=== PATIENT | female | born 1945 | race Caucasian/White ===

== ENCOUNTER 2019-06-04 09:33 | Inpatient (IN) ==
--- NOTE | 2019-06-04 09:56 | PROVIDER DOCUMENTATION ---
HPI-General Adult - General Chief Complaint: UTI Symptoms Stated Complaint: FEMALE Time Seen by Provider: 06/04/19 09:51 Source: patient Allergies/Adverse Reactions: Patient Allergies Allergy/AdvReac Type Severity Reaction Status Date / Time aspirin Allergy Unknown Verified 06/04/19 09:59 celecoxib Allergy Unknown Verified 06/04/19 09:59 chlorhexidine Allergy RASH Verified 06/04/19 09:59 ciprofloxacin [From Cipro] Allergy Unknown Verified 06/04/19 09:59 gabapentin Allergy Unknown Verified 06/04/19 09:59 Iodinated Contrast Media Allergy VOMITING Verified 06/04/19 09:59 niacin Allergy HIVES Verified 06/04/19 09:59 [From Niaspan Extended-Release] pregabalin Allergy ITCHING Verified 06/04/19 09:59 propoxyphene Allergy ITCHING Verified 06/04/19 09:59 [From Margesic (propoxyphene)] rofecoxib Allergy Unknown Verified 06/04/19 09:59 vancomycin Allergy ITCHING Verified 06/04/19 09:59 cogesic Allergy RASH Uncoded 06/04/19 09:59 Home Medications: Home Medication List Medication Instructions Recorded Confirmed Last Taken Type Calcitriol 1 cap PO DIRECTED 06/04/19 06/04/19 Unknown History Carvedilol 1 tab PO BID 06/04/19 06/04/19 Unknown History Cholecalciferol (Vit D3) [Vitamin 1 tab PO DAILY 06/04/19 06/04/19 Unknown History D3] Cyanocobalamin (Vitamin B-12) 1 tab PO DAILY 06/04/19 06/04/19 Unknown History [Vitamin B-12] Cyclobenzaprine HCl 1 tab PO QHS 06/04/19 06/04/19 Unknown History Escitalopram Oxalate [Lexapro] 1 tab PO DAILY 06/04/19 06/04/19 Unknown History Ferrous Sulfate 1 tab PO DAILY 06/04/19 06/04/19 Unknown History Hydrocodone/Acetaminophen 1 tab PO Q4-6H PRN PRN 06/04/19 06/04/19 Unknown History [Hydrocodone-Acetamin 7.5-325] Hydroxyzine HCl 1 - 2 tab PO TID PRN 06/04/19 06/04/19 Unknown History Insulin Glargine,Hum.rec.anlog 10 units SUBQ DAILY 06/04/19 06/04/19 Unknown History [Lantus Solostar] Insulin Lispro [Humalog Kwikpen 25 units SUBQ DAILY 06/04/19 06/04/19 Unknown History U-100] L.acidoph,Paracasei, B.lactis 1 cap PO DAILY 06/04/19 06/04/19 Unknown History [Probiotic] Lidocaine 5% Patch [Lidoderm] 1 patch TD DAILY 06/04/19 06/04/19 Unknown History Polyethylene Glycol 3350 [Miralax] 1 packet PO QHS PRN 06/04/19 06/04/19 Unknown History Rosuvastatin Calcium 10 mg PO QHS 06/04/19 06/04/19 Unknown History Sodium Bicarbonate 325 mg PO BID 06/04/19 06/04/19 Unknown History Sulfamethoxazole/Trimethoprim 1 tab PO DAILY 06/04/19 06/04/19 Unknown History [Bactrim 400-80 mg Tablet] Ubidecarenone [Coenzyme Q-10] 1 cap PO DAILY 06/04/19 06/04/19 Unknown History - History of Present Illness -Gen Adult Nature of Presenting Problems: [place] was [place], came to [place] yesterday to stay with her daughter, patient had history of chronic UTI, still had Picc line in place. patient had back surgery, history of chronic urinary incontinence. patient reported her blood pressure was low this AM, went to and was asked to come to the ER. Location of Pain/Injury: reports: other (urinary tract) Pain Radiation: reports: no radiation Quality of Pain: reports: burning, sharp, stabbing Severity: reports: moderate Onset/Duration: reports: gradual Timing: reports: still present Context/Activities at Onset: reports: none Associated Symptoms: reports: anxiety, genitourinary problems. denies: chest pain, cough, fever/chills, shortness of breath Similar Symptoms Previously?: Yes Recently seen or treated by another doctor?: Yes Review of Systems - Adult - REVIEW OF SYSTEMS - ADULT Constitutional: reports: jessica. denies: fever Eyes: reports: no symptoms reported Ears, Nose, Mouth & Throat: reports: no symptoms reported Cardiovascular: reports: no symptoms reported Respiratory: reports: no symptoms reported Gastrointestinal: reports: no symptoms reported Genitourinary: reports: dysuria, frequent UTI's, incontinence Musculoskeletal: reports: no symptoms reported Integumentary: reports: no symptoms reported Neurological: reports: no symptoms reported Psychiatric: reports: no symptoms reported Endocrine: reports: no symptoms reported Hematologic/Lymphatic: reports: no symptoms reported Past History - Adult - PAST MEDICAL HISTORY-ADULT Review of Records: reports: Nursing Assessment Review Physical Exam-General - PHYSICAL EXAM-ADULT Initial Vital Signs Reviewed: Yes - CONSTITUTIONAL General Appearance: alert, no apparent distress - EYES Eyes: PERRL/EOMI, pink conjunctivae - HEAD, EARS, NOSE, MOUTH & THROAT HENMT: normocephalic/atraumatic, normal ENT inspection - NECK Neck: non-tender, supple - RESPIRATORY Respiratory: chest non-tender, lungs clear - CARDIOVASCULAR Cardiovascular: normal peripheral pulses, regular rate, rhythm, no edema - GASTROINTESTINAL (ABDOMEN) Abdominal Exam: normal bowel sounds, non tender - LYMPHATIC Lymphatic: no adenopathy - MUSCULOSKELETAL Back Exam: normal inspection, no CVA tenderness, no vertebral tenderness Extremity: non-tender, no pedal edema, no calf tenderness - SKIN Integumentary: normal color, normal turgor - NEUROLOGIC Neurologic: grossly normal, no motor/sensory deficits - PSYCHIATRIC Psych/Mental Status: normal mood/affect Progress - PLAN OF CARE/RESULTS Progress/Plan/Lab Results: Vital Signs - 8 hr 06/04/19 09:40 Temperature 97.9 F Pulse Rate 58 L Respiratory Rate 16 Blood Pressure 141/64 O2 Sat by Pulse Oximetry 100 Result Diagrams: 06/04/19 10:20 06/04/19 10:20 - CONSULTS/PCP/HOSPITALIST Notification #1 *Consult/PCP/Hospitalist*: CARINA Cullen Time Discussed: 14:42 Consult Disposition: Will see in ED, Admit Departure - Departure Date of Disposition Decision: 06/04/19 Time of Disposition Decision: 14:41 DIAGNOSIS: Hypoglycemia UTI (urinary tract infection) Qualifiers: Urinary tract infection type: site unspecified Hematuria presence: without hematuria Qualified Code(s): N39.0 - Urinary tract infection, site not specified Disposition: ADMITTED INPATIENT 09 Certified Medical Emergency: Emergent Condition: Good Referrals and Follow-Ups: None,PCP [Primary Care Provider] - - Critical Care Note This patient required my direct & personal management of CC.: No Attestation - Physician/ CHETAN Attestation Patient care was provided by Advanced Practice Provider:: No The physician spent face to face time with patient:: Yes Advanced Practice Provider documentation review:: Supervising physician onsite and consulted in the evaluation and care of this patient. The physician did have a face to face encounter with the patient.
[2019-06-04] MEDS ORDERED: NS 1,000 ML IV ONE (10:29)
[2019-06-04] MEDS ORDERED: D50W SYRINGE IV ONE (10:29)
[2019-06-04] MEDS ORDERED: D5 NS 1,000 ML IV ONE (10:43)
[2019-06-04 10:46] LABS: BASO# 0.06 X1000 (0.0-0.2); BASO% 0.5 % (0.0-0.8); EOS# 1.28 X1000 (0.0-0.7); EOS% 9.6 % (0.0-10.0); HEMATOCRIT 28.7 % (37.0-47.0); HEMOGLOBIN 9.2 g/dL (12.0-16.0); IMM GRAN# 0.04 X1000 (0.0-0.04); IMM GRAN% 0.3 % (0.0-0.5); LYMPH# 2.81 X1000 (1.2-3.4); LYMPH% 21.2 % (20.5-51.1); MCH 30.3 PG (27-31); MCHC 32.1 g/dL (33-37); MCV 94.4 FL (81-99); MONO# 1.16 X1000 (0.11-0.59); MONO% 8.7 % (1.7-9.3); MPV 8.9 FL (7.4-10.4); NEUT# 7.93 X1000 (1.4-6.5); NEUT% 59.7 % (42.2-75.2); PLT 392 X1000 (130-400); RBC 3.04 XMIL (4.2-5.4); WBC 13.28 X1000 (4.8-10.8)
[2019-06-04 11:17] LABS: ALB/GLOB RATIO 1.1; ALBUMIN 3.5 g/dL (3.5-5.0); CALCIUM 8.8 mg/dL (8.8-10.2); CREATININE 2.2 mg/dL (0.5-0.9); POTASSIUM 3.3 mmol/L (3.5-5.1); TOTAL BILIRUBIN 0.17 mg/dL (0.20-1.00); TOTAL PROTEIN 6.8 g/dL (6.3-8.3)
[2019-06-04] MEDS ORDERED: INVANZ 1 GM/NS 1 GM/50 ML IVPB IV ONE (14:12)
[2019-06-04 14:15] LABS: URINE SOURCE CLEAN CATCH
[2019-06-04 14:29] LABS: BILIRUBIN URINE NEGATIVE (NEGATIVE); BLOOD URINE MODERATE (NEGATIVE); COLOR ORANGE; GLUCOSE URINE 300 mg/dL (NEGATIVE); KETONE URINE NEGATIVE (NEGATIVE); LEUKOCYTES URINE LARGE (NEGATIVE); NITRITE URINE NEGATIVE (NEGATIVE); PROTEIN URINE 100 mg/dL (NEGATIVE); SP GRAVITY URINE 1.007; TURBIDITY URINE TURBID (CLEAR); UROBILINOGEN URINE NORMAL (NORMAL)
[2019-06-04 14:31] LABS: UR EPITHELIAL CELLS <10 /HPF (<10); URINE BACTERIA NEGATIVE /HPF; URINE WBC TNTC /HPF (<10)
[2019-06-04 15:00] LABS: URINE CASTS NONE SEEN; URINE CRYSTALS NONE SEEN; URINE YEAST PRESENT
[2019-06-04] MEDS ORDERED: ZOFRAN IV PRN (16:50)
[2019-06-04] MEDS ORDERED: ATARAX PO PRN (16:53)
[2019-06-04] MEDS ORDERED: MIRALAX PO PRN (16:53)
--- NOTE | 2019-06-04 18:02 | HISTORY AND PHYSICAL ---
ADDENDUM: Patient seen and examined by me [id number]. All the laboratory, vital signs were reviewed. The patient presented to the emergency department due to some lower abdominal pain. She has a PICC line. [place]. She has chronic UTIs and urinary retention I believe after having multiple surgeries on her back. Because of the surgery, also she has right lower extremity numbness and she has been using a walker and a wheelchair as well, we check on this patient and she has been having urinary retention. We will go ahead and culture her blood and also her urine to see if we can pull out her PICC line. She does not know what treatment she was getting, but she finished with that. We also noted that this patient's white blood cell count was elevated at 13.2. Her potassium level was a little bit low at 3.3 and the glucose level was 35, but I do not think she was having symptoms. The urine showed some white blood cell counts, but no nitrates, we are going to culture this anyway, she does not seems to be toxic, she does have a PICC line like I mentioned before, and she is coming from [place] and she is here with her daughters. Her plan is to stay here in [place], so probably we need to set up an appointment with Urology Department. I do believe this patient will need probably a suprapubic catheter or she will need to learn how to do auto catheterization. She will be hospitalized, and in 2 days hopefully I will discharge this patient home. I agree with the rest of the nurse practitioner's assessment and plan. cc: Liu Solo MD
--- NOTE | 2019-06-04 20:54 | HISTORY AND PHYSICAL ---
CHIEF COMPLAINT: "I think I have another UTI." HISTORY OF PRESENT ILLNESS: This is a 73-year-old female who underwent back surgery x3 in a 6- week period and subsequently has developed urinary retention with overflow incontinence, and incontinence of stool reportedly after the third surgery. She reports frequent UTI since the surgeries. She reports having more than one urinary tract infection since March, with the last requiring a PICC line and IV antibiotics. Although she cannot remember when the PICC line was placed and she is unaware of what antibiotic she took or how long she took it. She did report having 1 IV antibiotic daily. She reports being evaluated by a urologist in [place] for her incontinence. She is unable to give me any specifics about recommended treatment. She did state that she remembered wearing the catheter all the time, and catheterizing herself were mentioned in possible treatments. It appears she was lost to followup after this. Ms. López states that she went to the walk-in clinic because of suprapubic pain and pressure, urethral burning and stinging, and urinary retention. She denies any fever or chills, or any shortness of breath or cough Ms Collado moved to [place] 2 days ago from [place] to be with her daughter. PAST MEDICAL HISTORY: 1. Diabetes mellitus. 2. Hypertension. 3. Hyperlipidemia. 4. Chronic kidney disease stage 3. 5. COPD. 6. Peptic ulcer disease. PAST SURGICAL HISTORY: 1. Bariatric surgery, [id number]. 2. Multiple back surgeries. 3. Bilateral lens replacement. 4. Carpal tunnel surgery. SOCIAL HISTORY: She denies any alcohol, tobacco or illicit drug use. She has recently moved to [place] to live with her daughter for a while. ALLERGIES: Aspirin, Cipro. gabapentin and propoxyphene, with unknown reactions. Chlorhexidine causes a rash. Iodine contrast causes vomiting. Niaspan causes hives; vancomycin, itching. HOME MEDICATIONS: A list will be obtained by the nursing staff, and once verified we will review and restart as appropriate. REVIEW OF SYSTEMS: Discussed with the patient, with pertinent positives stated in the HPI. She denied any syncope or dizziness, any chest pain, palpitations, cough, any shortness of breath, PND, orthopnea, any nausea, vomiting, diarrhea, constipation, black or bloody vomitus or stools, hematuria, dysuria, frequency or urgency. PHYSICAL EXAMINATION: GENERAL: This is a 73-year-old female who is sitting up on the stretcher in the emergency room in no distress. VITAL SIGNS: Blood pressure is 134/60 with a heart rate of 63, respirations are 18, temperature is 98.2 degrees, with O2 saturations 97% to 100% EYES: Pupils are equal, round and reactive to light. EOMs are intact. Sclerae anicteric. HEENT: Head is normocephalic, atraumatic. Mucous membranes are moist. NECK: Supple, with trachea midline. CARDIOVASCULAR: Regular rate and rhythm. S1, S2 appreciated. No lower extremity edema. She reported calves are nontender bilaterally, with peripheral pulses palpable x4 extremities. PULMONARY: Breath sounds are clear. No increased work of breathing noted. Chest rises and falls symmetric with respiration. Chest wall is nontender to palpation. GASTROINTESTINAL: Abdomen is soft, nontender, nondistended, with bowel sounds in all 4 quadrants. NEUROLOGIC: She is alert and oriented x3. SKIN: Warm and dry. LABORATORY DATA: WBC is 13.2 with hemoglobin 9.2, hematocrit 28.7, platelets of 392,000. Sodium is 137, potassium 3.3, BUN 29, creatinine 2.2 with a glucose of 35. Urinalysis reveals large leukocytes with pro-[id number]-vb-count white blood cells and 10-20 red blood cells. Blood cultures and urine culture are pending. ASSESSMENT AND PLAN: 1. Urinary retention with overflow incontinence. We will place a Vilchis catheter. I have spoken with Dr. Mikey German, who will see the patient next week after discharge from the hospital. The patient will be discharged with a Vilchis catheter and a leg bag. 2. Multiple back surgeries, with right lower extremity numbness and weakness. The patient uses a walker and a wheelchair, which we will continue. 3. Reported chronic urinary tract infection, with recent intravenous antibiotics via peripherally inserted central catheter line in the right arm. Peripherally inserted central catheter line will stay in place at this time. We will send a urine for culture, and attempt to obtain records from her primary care physician in [place]. 4. Hypoglycemia. We will hold any antidiabetic medication as well as any long- acting insulin, if the patient is in fact on them. Place her on pattern blood glucose with sliding scale insulin. 5. History of chronic kidney disease. She does have a creatinine of 2.2, and in reviewing her prior labs it is noted that she had a creatinine of 1.9 in February 2019. We will renal-dose medications as is appropriate. Gently hydrate and trend labs daily. Dictated by CARINA Zamarripa for Liu Solo MD cc: CARINA Zamarripa MD [facility]
[2019-06-04] MEDS: COREG PO SCH (20:58)
[2019-06-04] MEDS: FLEXERIL PO SCH (20:58)
[2019-06-05] MEDS: HUMALOG SUBQ SCH ×5 (00:50→20:27)
[2019-06-05] MEDS: CRESTOR PO SCH ×2 (00:50→20:27)
[2019-06-05] MEDS: SODIUM BICARBONATE PO SCH ×3 (00:51→20:27)
[2019-06-05] MEDS: COREG PO SCH ×3 (00:52→20:27)
[2019-06-05 07:37] LABS: BASO# 0.05 X1000 (0.0-0.2); BASO% 0.6 % (0.0-0.8); EOS# 0.76 X1000 (0.0-0.7); EOS% 8.8 % (0.0-10.0); HEMATOCRIT 27.1 % (37.0-47.0); HEMOGLOBIN 8.4 g/dL (12.0-16.0); LYMPH# 2.31 X1000 (1.2-3.4); LYMPH% 26.6 % (20.5-51.1); MCH 29.7 PG (27-31); MCV 95.8 FL (81-99); MONO# 0.72 X1000 (0.11-0.59); MONO% 8.3 % (1.7-9.3); MPV 8.6 FL (7.4-10.4); NEUT# 4.84 X1000 (1.4-6.5); NEUT% 55.7 % (42.2-75.2); PLT 314 X1000 (130-400); RBC 2.83 XMIL (4.2-5.4); WBC 8.68 X1000 (4.8-10.8)
[2019-06-05 07:53] LABS: CALCIUM 8.5 mg/dL (8.8-10.2); CREATININE 2.1 mg/dL (0.5-0.9); POTASSIUM 4.1 mmol/L (3.5-5.1)
[2019-06-05 08:15] LABS: CALCIUM 8.4 mg/dL (8.8-10.2); CREATININE 2.1 mg/dL (0.5-0.9); POTASSIUM 4.1 mmol/L (3.5-5.1)
[2019-06-05] MEDS ORDERED: LEXAPRO PO SCH (09:00)
[2019-06-05] MEDS: VITAMIN B-12 PO SCH (09:57)
[2019-06-05] MEDS: FERROUS SULFATE PO SCH (09:58)
[2019-06-05] MEDS: VITAMIN D PO SCH (09:58)
[2019-06-05] MEDS: CULTURELLE PO SCH (09:59)
[2019-06-05] MEDS: LEXAPRO PO SCH (10:14)
--- NOTE | 2019-06-05 14:40 | PROGRESS NOTE ---
DATE: 06/05/2019 SUBJECTIVE: The patient is resting comfortably in bed. She is not complaining of pain. We will continue with the same management. So far blood culture and urine culture are negative, if these are negative tomorrow hopefully we can pull out the PICC line. Vital signs are stable. OBJECTIVE: Vital Signs: Temperature 98 degrees, pulse 79, respiratory rate 16, blood pressure 159/54, oxygen saturation 100% on room air. HEENT: Head normocephalic and atraumatic. PERRLA. Neck: Supple. No JVD. No masses. Central trachea. Chest: Clear to auscultation. Abdomen: Soft. Extremities: No edema, no clubbing, no cyanosis. Neurological: Alert, awake. LABORATORY DATA: WBC 8.6, hemoglobin 8.4, hematocrit 27.1, platelets 314,000. Sodium 140, potassium 4.1, chloride 104, bicarbonate 24, BUN 27, creatinine 2.1, glucose 87, calcium 8.4, magnesium 2. ASSESSMENT AND PLAN: 1. Urinary retention with overflowed incontinence. We have placed a Vilchis catheter. Our nurse practitioner already talked to Mikey German and it looks like he is going to see her next week after discharge from the hospital. The patient will be discharged with a Vilchis catheter and a leg bag. 2. Multiple back surgeries. We will continue to monitor for now. She is complaining of right lower extremity numbness. She uses a walker and a wheelchair. 3. Chronic urinary tract infection. She came in with a PICC line in place from [place] I believe. We will remove the Vilchis catheter if the blood culture and urine culture are negative. 4. Hypoglycemia. This patient has diabetes and apparently she has been using long-acting and short-acting insulin. This has been stopped and I will request a hemoglobin A1c. 5. History of CKD, creatinine is 2.2. We do not have any lab work before. We will monitor for now. She should follow up with the Nephrology Department as an outpatient. cc: Liu Solo MD
[2019-06-05] MEDS: NORCO-7.5 PO PRN (19:14)
[2019-06-05] MEDS: FLEXERIL PO SCH (20:27)
[2019-06-06] MEDS: HUMALOG SUBQ SCH (06:05)
[2019-06-06 07:56] LABS: HEMOGLOBIN A1C 6.5 % (4.8-6.0)
[2019-06-06 07:57] LABS: CALCIUM 8.6 mg/dL (8.8-10.2); CREATININE 1.9 mg/dL (0.5-0.9); HEMOGLOBIN 9.8 g/dL (12.0-16.0); POTASSIUM 4.2 mmol/L (3.5-5.1)
[2019-06-06] MEDS: COREG PO SCH (11:16)
[2019-06-06] MEDS: VITAMIN D PO SCH (11:17)
[2019-06-06] MEDS: FERROUS SULFATE PO SCH (11:17)
[2019-06-06] MEDS: VITAMIN B-12 PO SCH (11:17)
[2019-06-06] MEDS: LEXAPRO PO SCH (11:17)
[2019-06-06] MEDS: SODIUM BICARBONATE PO SCH (11:17)
[2019-06-06] MEDS: NORCO-7.5 PO PRN (11:18)
[2019-06-06] MEDS: CULTURELLE PO SCH (11:18)
[2019-06-06 11:58] VITALS: BP 147/53
--- NOTE | 2019-06-06 12:43 | DISCHARGE SUMMARY ---
ADMISSION DATE: 06/04/2019 DISCHARGE DATE: 06/06/2019 DIAGNOSES: 1. Urinary retention with overflow incontinence. 2. Multiple back surgeries. 3. History of chronic urinary tract infection. 4. Hypoglycemia. 5. Chronic kidney disease. MICROBIOLOGY: 1. Blood cultures x2 revealed no growth after 48 hours. 2. Urine culture revealed no growth. HOSPITAL COURSE: Ms. López presented to the emergency room, thinking she had a UTI. She does have a history of urinary tract infections with her last, that we could find cultures on, being Pseudomonas for which she received IV antibiotics, although we are unsure exactly which antibiotics she was given as Ms. López just moved down here from [place] 2 days prior to admission to stay with her daughter. Ms. López has a complicated history, having multiple back surgeries and ultimately ending up with urinary retention and overflow incontinence, and incontinence of stool after the last surgery. Her reported urinary tract symptoms this visit are suprapubic pain, pressure and fullness with frequency, urgency going to small amounts of urine at a time, and incontinence. She was bladder scanned in the emergency room with greater than I think 400 of urine found in her bladder. Once Vilchis catheter was inserted and bladder was decompressed, she had no further symptoms. I spoke to Dr. Kevin German, urogynecology, who will see the patient this next week after discharge. We will discharge her with a Vilchis catheter to a leg bag for decompression. Urine culture revealed no growth. Blood cultures were negative and thankfully, we were able to discontinue her PICC line. She did have hypoglycemia on arrival to the emergency room. Her hemoglobin A1c was 6.5. We held her long-acting insulin, only treating her with sliding scale insulin. Her blood sugars initially were 22 to 80s. They have since remained 110 to 280. She has a creatinine of 2.2. She did say that she had been told she had elevated creatinine in the past, although we are unsure of previous labs. These were requested but never obtained from her prior hospital. She will follow up with Dr. Dewayne Shore in nephrology. Thankfully, today, she is feeling much better and is able to be discharged. DISCHARGE VITAL SIGNS: Blood pressure is 150/65, with a heart rate of 64, respirations are 20, temperature is 98.1 degrees oral, room air saturations 97-99%. DISCHARGE PHYSICAL EXAMINATION: Cardiovascular: Regular rate and rhythm. S1, S2 appreciated. Pulmonary: Breath sounds clear. No increased work of breathing noted. Chest rises and falls symmetrically with respiration. Chest wall is nontender to palpation. Gastrointestinal: Abdomen is soft, nontender, nondistended, with bowel sounds in all 4 quadrants. Neurologic: She is alert and oriented x3. Skin is warm and dry. DISCHARGE MEDICATIONS: 1. Coenzyme 10 one daily. 2. Lidoderm patch as directed. 3. Humalog KwikPen 4 units subcutaneous daily. 4. Lantus 10 units subcutaneous daily. 5. Calcitriol 0.25 mcg 1 capsule as directed. 6. Sodium bicarbonate 325 mg p.o. b.i.d. 7. Rosuvastatin calcium 10 mg p.o. at bedtime. 8. MiraLAX 17 g p.o. at bedtime. 9. Probiotic 1 p.o. daily. 10. Hydroxyzine 25 mg 1 to 2 p.o. t.i.d. p.r.n. anxiety. 11. [place] 7.5/325 one q.4-6 hours p.r.n. 12. Ferrous sulfate 325 mg p.o. daily. 13. Lexapro 20 mg p.o. daily. 14. Cyclobenzaprine 5 mg p.o. at bedtime. 15. Vitamin B12 one tablet p.o. daily. 16. Vitamin D3 with 1000 units at bedtime. 17. Coreg 25 mg p.o. b.i.d. FOLLOWUP: 1. Dr. Kevin German. She is to call the office Friday to schedule an appointment. 2. Dr. Dewayne Shore. Appointment will be made by the hospital and we will call the patient with details. The patient was discharged with Vilchis to leg bag. TIME SPENT: This is a greater than 30 minute discharge. Dictated by CARINA Zamarripa for Liu Solo MD cc: CARINA Zamarripa MD Mitchell W. Schuster, MD
== END 2019-06-06 13:06 | disposition home or self-care (01) | DRG 696 ==
LOC: ED 09:33 → EDIPHOLD 17:41 → 3N 19:38
PROVIDERS: ATTEND Internal Medicine